=== PATIENT | male | born 1975 | race Caucasian/White ===

== ENCOUNTER 2017-11-05 13:39 | Outpatient (REF) | payer OTHER, SELFPAY ==
[2017-11-05 20:21] LABS: Abs Immature Grans 0.05 k/cumm (0.0-0.09); Absolute Basophil Count 0.02 k/cumm (0.0-0.2); Absolute Eosinophil Count 0.04 k/cumm (0.0-0.7); Absolute Lymphocyte Count 0.89 k/cumm (1.2-3.4); Absolute Monocyte Count 0.26 k/cumm (0.11-0.7); Absolute Neutrophil Count 8.48 k/cumm (1.2-6.7); Basophils % 0.2; Eosinophils % 0.4; HCT 44.6 % (40.0-50.0); HGB 15.6 g/dL (13.5-17.5); Immature Grans % 0.5; Lymphocytes % 9.1; Mean Corpuscular Hemoglobin 31.8 pg (27.0-33.0); Mean Corpuscular Volume 90.8 fL (80-95); Mean Platelet Volume 9.9 fL (8.0-11.0); Monocytes % 2.7; Neutrophils % 87.1; Platelet Count 274 x1000/uL (130-400); RBC 4.91 m/cumm (4.50-6.00); White Blood Cell Count 9.74 k/cumm (4.4-10.8)
== END 2017-11-05 13:59 ==
LOC: NCHCN 13:39
PROVIDERS: PCP Specialist/Technologist Athletic Trainer; Visit Provider Specialist/Technologist Athletic Trainer
DX: L42 Pityriasis rosea (principal); L29.9 Pruritus, unspecified
CPT/HCPCS: 85025

== ENCOUNTER 2018-07-17 22:16 | Outpatient (REF) | payer OTHER, SELFPAY ==
[2018-07-17 20:09] LABS: Anion Gap 11.5 mmol/L (3-11); BUN 4 mg/dL (7-18); CO2 26.5 mmol/L (21.0-32.0); CREATININE 0.73 mg/dL (0.70-1.30); Calcium 8.9 mg/dL (8.5-10.1); Chloride 101 mmol/L (98-107); Glucose 95 mg/dL (70-100); Sodium 139 mmol/L (136-145)
== END 2018-07-17 22:36 ==
LOC: NCHCN 22:16
PROVIDERS: PCP Specialist/Technologist Athletic Trainer; Visit Provider Specialist/Technologist Athletic Trainer
DX: I10 Essential (primary) hypertension (principal)
CPT/HCPCS: 80048

== ENCOUNTER 2019-09-20 09:08 | Outpatient (REF) | payer SELFPAY ==
[2019-09-20 19:26] LABS: HCT 42.1 % (40.0-50.0); MCH 33.3 pg (27.0-33.0); MCHC 35.6 % (32.0-36.0); MCV 93.6 fL (80-95); MPV 9.5 fL (8.0-11.0); Platelet Count 235 10^3/uL (130-400); RDW 11.8 % (11.8-14.1); RDW-SD 40.5 fL
[2019-09-20 20:04] LABS: Anion Gap 11.4 mmol/L (3-11); BUN 7 mg/dL (7-18); CO2 24.6 mmol/L (21.0-32.0); CREATININE 0.85 mg/dL (0.70-1.30); Chloride 99 mmol/L (98-107); Glucose 103 mg/dL (74-106); Potassium 4.3 mmol/L (3.5-5.1); Sodium 135 mmol/L (136-145); TSH 1.82 uIU/mL (0.36-3.74)
[2019-09-22 10:05] LABS: Hepatitis C Ab w Rflx HCV PCR Negative (Negative)
[2019-09-22 10:21] LABS: HIV-1/2 Ag & Ab Screen Negative (Negative)
== END 2019-09-20 09:28 ==
LOC: NCHCN 09:08
PROVIDERS: PCP Nurse Practitioner Family; Visit Provider Nurse Practitioner Family
DX: Z00.00 Encounter for general adult medical examination without abnormal findings (principal); I10 Essential (primary) hypertension; N63.0 Unspecified lump in unspecified breast; Z68.42 Body mass index [BMI] 45.0-49.9, adult; Z11.59 Encounter for screening for other viral diseases; Z11.4 Encounter for screening for human immunodeficiency virus [HIV]
CPT/HCPCS: 80048; 85027; 86803; 87389; 84443